=== PATIENT | female | born 1960 | race Caucasian/White ===

== ENCOUNTER → 2016-08-24 | Outpatient (CLI) | payer OTHER, BC ==
[~2016-08-24] MED LIST: NORCO 5-325 TA1 EACH PO; THERA1 EACH PO; ZOFRAN4 MG PO
== END | disposition home or self-care (01) ==
LOC: RAD.S 07:10
DX: Z12.31 Encounter for screening mammogram for malignant neoplasm of breast (principal)

== ENCOUNTER → 2016-09-24 | Outpatient (CLI) | payer OTHER, BC | END | disposition home or self-care (01) | LOC: PTH.S 09:08 | DX: Z01.812 Encounter for preprocedural laboratory examination (principal) ==

== ENCOUNTER 2016-09-30 05:35 | Inpatient (IN) | payer OTHER, BC ==
[~2016-09-30] VITALS: Ht 165.1 cm; Wt 111.0 kg
--- NOTE | ~2016-09-30 | OR ---
ADMIT: 09/30/2016 RM/LOC: 518 [facility] MR#: [id number] [address] [id number] ERICK DANIELS [address] [place] [address] Operative/Delivery Room Report SEX: F AGE: 56 : 1960 SURGERY DATE: 09/30/2016 SURGEON: Estevan Dai MD PREOPERATIVE DIAGNOSIS: Cecal cancer. POSTOPERATIVE DIAGNOSIS: Cecal cancer. FINAL PATHOLOGY: Pending. PROCEDURE: Laparoscopic right hemicolectomy. SOFTWARE QA SYSTEM SPECIALIST: Raymundo Crook MD ANESTHESIA: General endotracheal tube. ESTIMATED BLOOD LOSS: 75 mL or less. SPECIMEN: Right colon to Pathology. INDICATION FOR PROCEDURE: Please see H and P. PROCEDURE IN DETAIL: After the risks, benefits, possible complications, and alternatives had been explained and informed consent had been obtained, the patient was taken back to the operating room, underwent general endotracheal tube anesthesia, and the surgical field was prepped and draped in a sterile manner. A supraumbilical incision was made. The Veress needle was inserted. The abdomen was insufflated with CO2. Once there was adequate insufflation, a 5 mm port was placed, the camera was placed through this port site. Under direct visualization, I then placed an infraumbilical 5 mm port, another midline 5 mm port and a 12 mm left-sided port. She was little tough, just kind of some of the intraabdominal fat and just not a lot of good tensile strength to it as you raise it up the mesentery, always want to tear and ooze. Started off, identified the right ileocolic vessel, made a window behind it. I got a stapler 2.5 load across it, then started slowly dissecting up towards the liver bed at free area there. Once I got it freed up and dissected out nicely, then I was able to come and get into above the transverse colon, but there just was not a great lesser sac there. We just really fused, slow persistent dissection. I kind of felt good. I felt that I got things dissected adequately out, did not get into the mesentery, carried it around, freed up the hepatic flexure. Then, I came down and worked from below up from the cecum to free it up, medial lateral until we felt like I had the whole right colon freed up nicely and everything enough medially freed up. Once that was done, I went ahead and clamped onto the appendix cecal area, made an incision in the abdomen in between my two upper 5 mm ports. Wound protector was placed. The specimen was brought up. Just bringing this specimen up, the mesentery, like I said, just wanted to tear it. I had to be careful, just wanted it to kind of bleed and ooze. There was a little bit of a pain. Chose an area, clamped, divided, and ligated mesentery, came across the small bowel ADMIT: 09/30/2016 RM/LOC: 518 [facility] MR#: [id number] [address] [place] [id number] ERICK DANIELS [address] [place] [address] Operative/Delivery Room Report SEX: F AGE: 56 : 1960 with a MARIUSZ stapler. In a like manner, at the transverse colon, picked an area distal enough from the lesion and came across it with a MARIUSZ stapler. Clamped, divided, and ligated some of the mesentery. Once that was done, the right colon specimen was removed from the field and sent. Returned the specimen. Changed gloves. Removed the wound protector. Closed the fascia with a running PDS superiorly and inferiorly, tying in the middle. Re-insufflated the abdomen. Inspected. Everything looked good. Took a couple more pictures. The liver looked okay. I did not see any significant bleeding at the area for anastomosis. Closed the fascia of the large port site with an 0- Polysorb suture using the suture passer on the left abdomen there and then, removed all the rest of the ports with as much CO2 as possible. I injected 0.5% Marcaine for pain control. Closed the skin with keerthi. She tolerated it well. She was extubated and taken to recovery room in stable and satisfactory condition. Estevan Dai MD/ lashawn JOB #: [id number] CC: Estevan Dai, Attending Physician Randall Mcallister, Family Physician
[2016-10-03] MEDS ORDERED: THERA1 EACH PO (08:41)
[2016-10-03] MEDS ORDERED: NORCO 5-325 TA1 EACH PO (08:42)
[2016-10-03] MEDS ORDERED: ZOFRAN4 MG PO (08:42)
--- NOTE | 2016-10-26 13:25 | DS ---
ADMIT: 09/30/2016 RM/LOC: 518 [facility] MR#: [id number] [address] [place], [place] [id number] ERICK DANIELS [address] [place] [address] Discharge Summary SEX: F AGE: 56 : 1960 ADMISSION DATE: 09/30/2016 DISCHARGE DATE: 10/02/2016 ADMITTING DIAGNOSIS: Cecal cancer. 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 PROCEDURES: Laparoscopic right hemicolectomy. HOSPITAL COURSE: The patient was an inpatient admit with routine med/surg orders. After surgery, the patient was transferred to the floor without any complications. She was given a morphine TYPING SECRETARY for pain control and her primary care physician was consulted to help with medical management. Overall, the patient recovered well while in the hospital. She was tolerating clears and so she was weaned off her morphine TYPING SECRETARY and was tolerating oral pain medications. She was ambulating and had normal return of her bowel function. Vitals remained stable throughout her hospital course and laboratory data normalized. She continued to recover well and was discharged to home on 10/02/2016. DISCHARGE INSTRUCTIONS: 1. Follow up with Dr. Dai on October 07. 2. Okay to shower. DISCHARGE MEDICATION LIST: 1. Therapeutic multivitamin daily. 2. Zofran 4 mg q.6h p.r.n. 3. Hydrocodone 5/325, q.4h p.r.n. HERNANDO Paiz / Estevan Dai MD / vdg JOB #: [id number] CC: Estevan Dai MD, Attending Physician Randall Mcallister MD, Family Physician
== END 2016-10-02 11:10 | disposition home or self-care (01) | DRG 330 ==
LOC: 5MS 05:35 → WOR 05:35 → 5MS 09:21
PROVIDERS: ADMIT Surgery
PROC: 0DTF4ZZ Resection of Right Large Intestine, Percutaneous Endoscopic Approach (ICD-10-PCS; principal; 2016-09-30)
DX: C18.0 Malignant neoplasm of cecum (principal); Z68.41 Body mass index [BMI] 40.0-44.9, adult; E66.9 Obesity, unspecified